=== PATIENT | male | born 1990 | race Caucasian/White ===

== ENCOUNTER 2020-07-09 10:59 | Emergency (ER) | payer OTHER ==
[~2020-07-09] VITALS: Ht 172.7 cm; Wt 87.8 kg
[~2020-07-09 10:59] MED LIST: ASPI-889 PO; DEXT10TA23 PO; GABA-585 PO; HYDR-1179 PO; IBUP400T18 PO; OXYC1TAB15 PO
--- NOTE | 2020-07-09 11:18 | PHYS DOC ---
Past History Past Medical History: Other Past Surgical History: Other Alcohol Use: None Drug Use: None General Adult EDM: Chief Complaint: HEADACHE HPI: HPI: History gained from patient. Patient is a 29 old male past medical history significant for migraines who presents with a headache. He states that he began approximately 7 hours prior to arrival. He states it was present when he woke up. He states he has had numerous headaches similar to this. He notes involves the right side of his head and behind his eyes. He does note some light sensitivity. Denies any acute vision or hearing changes. Denies neck pain. Did try Maxalt and Zofran at home prior to arrival. States he follows with his home primary care physician for chronic treatment of his migraines. He states he is visiting from out of town. Denies fevers. Denies vomiting. Denies IV drug use. Patient denies acute onset of headache reaching maximal intensity in under one hour. This is neither the worst headache that Patient has ever experienced, nor was the onset timed with exertional activity or trauma. Patient has not experienced any fever, unusual neck pain or stiffness, syncope, or near syncope. Patient denies numbness, tingling, or weakness of the extremities. Patient also denies personal history of intracranial hemorrhage (including SAH), aneurysm, or AV malformation. Review of Systems: Review of Systems: Constitutional: Denies fever or chills Eyes: Denies change in visual acuity HENT: Denies nasal congestion or sore throat Respiratory: Denies cough or shortness of breath Cardiovascular: Denies chest pain or edema GI: Denies abdominal pain, nausea, vomiting, bloody stools or diarrhea : Denies dysuria Musculoskeletal: Denies back pain or joint pain Integument: Denies rash Neurologic: positive for headache Endocrine: Denies polyuria or polydipsia Lymphatic: Denies swollen glands Psychiatric: Denies depression or anxiety Allergies: Allergies: Allergies Coded Allergies Type Severity Reaction Last Updated Verified No Known Drug Allergies 07/09/20 No Physical Exam: PE: Constitutional: Well developed, well nourished, no acute distress, non-toxic appearance. [] HENT: Normocephalic, atraumatic, bilateral external ears normal, oropharynx moist, no oral exudates, nose normal. [] Eyes: PERRLA, EOMI, conjunctiva normal, no discharge. [] Neck: Normal range of motion, no tenderness, supple, no stridor. [] Cardiovascular:Heart rate regular rhythm, no murmur [] Lungs & Thorax: Bilateral breath sounds clear to auscultation [] Abdomen: soft, no tenderness, no masses, no pulsatile masses. [] Skin: Warm, dry, no erythema, no rash. [] Back: No tenderness, no CVA tenderness. [] Extremities: No tenderness, no cyanosis, no clubbing, ROM intact, no edema. [] Neurologic: Alert with intact cognitive function. No aphasia, dysarthria, or neglect. GCS 15. Pupils 3 mm briskly reactive b/l. No APD present. Cranial nerves 2-12 grossly intact; no facial asymmetry present, tongue midline, shoulder shrugging strength intact. Strength 5/5 and symmetric throughout. Light touch sensation intact throughout. Cerebellar testing appropriate without evidence of dysdiadochokinesia. DTR's 2+ in all 4 extremities. Negative pronator drift bilaterally. Gait normal Psychologic: Affect normal, judgement normal, mood normal. [] EKG: EKG: [] Radiology/Procedures: Radiology/Procedures: [place] [address] IMAGING REPORT Signed PATIENT: ERIS KEITH ACCOUNT: [id number] : 1990 LOCATION: ER AGE: 29 SEX: M EXAM STATUS: REG ER ORD. PHYSICIAN: ALVARO EMERSON DO REASON: BEY PROCEDURE: CT HEAD WO CONTRAST Examination: CT HEAD/BRAIN WO History: Reason: BEY / Spl. Instructions: / History: Comparison/Correlation: None Findings: Axial images of the head without contrast. Ventricles are normal size. No intracranial hemorrhage, midline shift, or mass effect. Mack-white matter differentiation is normal. Visualized paranasal sinuses are unremarkable. Mastoid air cells are clear. Bony structures are intact. Impression: Normal CT head without contrast. Electronically signed by: Andres Ricardo MD (07/09/2020 11:38 AM) [id number] DICTATED AND SIGNED BY: ANDRES RICARDO MD DATE: 07/09/20 1137 CC: CAITLIN CALLE MD; TANQUARY,ALVARO H DO ~MTH0 0 [] Heart Score: Risk Factors: Risk Factors: DM, Current or recent (<one month) smoker, HTN, HLP, family history of CAD, obesity. Risk Scores: Score 0 - 3: 2.5% MACE over next 6 weeks - Discharge Home Score 4 - 6: 20.3% MACE over next 6 weeks - Admit for Clinical Observation Score 7 - 10: 72.7% MACE over next 6 weeks - Early Invasive Strategies Course & Med Decision Making: Course & Med Decision Making Pertinent Labs and Imaging studies reviewed. (See chart for details) [] Patient is a well-appearing 29-year-old male who presents with chief comp laint of migraine headache. He does report history of these headaches. CT imaging was obtained given he reports a remote history of advanced imaging. This is grossly unremarkable. After receiving analgesia patient's pain has resolved. On repeat examination he states his headache is much improved. His repeat neurologic therapy stable. I not feel any laboratory analysis will yield further diagnostic permission. Patient requesting discharge home. He does have a ride to go home with. Return precautions were discussed and understood. Stable for discharge. Dragon Disclaimer: Blas Disclaimer: This electronic medical record was generated, in whole or in part, using a voice recognition dictation system. Departure Departure: Impression: Primary Impression: Headache Qualified Codes: R51.9 - Headache, unspecified Disposition: 01 DC HOME SELF CARE/HOMELESS Condition: STABLE Referrals: CAITLIN CALLE MD (PCP) Patient Instructions: Migraine Headache Additional Instructions: Please follow-up with your primary care physician next week. ALVARO EMERSON DO Jul 09, 2020 11:18
[2020-07-09] MEDS ORDERED: diphenhydrAMINE 50 MG/ML VIAL IVP ONE (11:30)
[2020-07-09] MEDS ORDERED: IV NORMAL SALINE 1,000ML 1,000 ML IV ONE (11:30)
[2020-07-09] MEDS ORDERED: PROCHLORPERAZINE 10 MG/2 ML VIAL. IV ONE (11:30)
--- NOTE | 2020-07-09 11:40 | RAD ---
Examination: CT HEAD/BRAIN WO History: Reason: BEY / Spl. Instructions: / History: Comparison/Correlation: None Findings: Axial images of the head without contrast. Ventricles are normal size. No intracranial hemo rrhage, midline shift, or mass effect. Mack-white matter differentiation is normal. Visualized parana lovely sinuses are unremarkable. Mastoid air cells are clear. Bony structures are intact. Impression: Normal CT head without contrast. Electronically signed by: Andres Mcginnis MD (07/09/2020 11:38 AM) [id number]
[2020-07-09] MEDS ORDERED: KETOROLAC 15 MG/ML VIAL. IVP ONE (12:00)
[2020-07-09 12:45] VITALS: BP 131/83
== END 2020-07-09 12:45 | disposition home or self-care (01) ==
LOC: ER 10:59
DX: R51.9 Headache, unspecified (principal)
CPT/HCPCS: 70450; 96361; 96374; 96375; 99284; J0780; J1200; J1885; J7030